=== PATIENT | female | born 1960 | race Caucasian/White ===

== ENCOUNTER 2017-08-31 15:24 | Emergency (ER) | payer OTHER ==
[~2017-08-31] VITALS: Ht 167.6 cm; Wt 87.0 kg
[~2017-08-31 15:24] MED LIST: CYAN10005 PO; CYCL5TAB PO; HYDR-5688 PO; LANS30TA3 PO; POLY335019 PO
[2017-08-31 15:26] VITALS: Ht 167.6 cm; Wt 87.0 kg
[2017-08-31] MEDS ORDERED: OPTIRAY 320 IV PRN (15:45)
[2017-08-31] MEDS ORDERED: HYDR5TAB57 PO (15:46)
[2017-08-31] MEDS ORDERED: MoRPHine SULFATE 10 MG/ML CARP/VIAL IV STA (15:55)
[2017-08-31] MEDS ORDERED: ONDANSETRON INJ 2 MG/ML 2 ML VIAL IV STA (15:55)
[2017-08-31 17:14] LABS: BASO % 0.4 %; BASO ABS # 0.03 K/uL (0-0.2); EOS % 2.3 %; EOS ABS # 0.17 K/uL (0-0.5); HEMATOCRIT 41.8 % (37-47); HEMOGLOBIN 14.1 g/dL (12.0-16.0); IG# 0.02 K/uL (0.00-0.02); LYMPH % 23.3 %; LYMPH ABS # 1.71 K/uL (1.2-3.4); MEAN CELL VOLUME 90.5 fL (80-100); MEAN CORPUSCULAR HEMOGLOBIN 30.5 pg (25-34); MEAN CORPUSCULAR HGB CONC 33.7 g/dl (32-36); MONO % 7.1 %; MONO ABS # 0.52 K/uL (0.11-0.59); NEUT % 66.6 %; NEUT ABS # 4.88 K/uL (1.4-6.5); PLATELET COUNT 239 K/uL (130-400); RED CELL DISTRIBUTION WIDTH SD 45.9 fL (36.4-46.3); WHITE BLOOD COUNT 7.33 K/uL (4.8-10.8)
[2017-08-31 17:20] LABS: CALCIUM 9.1 mg/dl (8.5-10.1); CREATININE 0.91 mg/dl (0.60-1.20); POTASSIUM 3.6 mmol/L (3.5-5.1)
--- NOTE | 2017-08-31 17:31 | DIAGNOSTIC IMAGING REPORT ---
SOFT TISSUE NECK WITH CLINICAL HISTORY: feel like something getting stuck when swallowing dysphagia TECHNIQUE: Transaxial acquisition with multi axial reformatted images COMPARISON STUDY: 08/25/2014 FINDINGS: Major salivary glands are unremarkable. Thyroid gland is symmetric. There is no evidence for airway compromise. The glottic and subglottic regions are unremarkable. The sternocleidomastoid musculature is symmetric. No significant cervical adenopathy. Moderate degenerative change of the cervical spine. This study is unaltered compared to the prior exam. IMPRESSION: 1. No acute process. 2. No evidence for abnormal mass or collection. 3. No evidence for airway compromise. 4. Moderate degenerative change cervical spine unchanged from the prior study. The above report was generated using voice recognition software. It may contain grammatical, syntax or spelling errors. Electronically signed by: Alex Zuniga M.D. 08/31/2017 5:30 PM Dictated Date/Time: 08/31/2017 5:26 PM
--- NOTE | 2017-08-31 17:34 | DIAGNOSTIC IMAGING REPORT ---
FACIAL BONES-MXILLOFAC WITHOUT CT DOSE: 1203.96 mGy.cm HISTORY: Pain severe left TMJ pain TECHNIQUE: Multiaxial CT images of the maxillofacial region were performed and reformatted in the coronal plane without the use of contrast. A dose lowering technique was utilized adhering to the principles of ALARA. COMPARISON: 11/02/2014 FINDINGS: Moderate hypertrophic change of the left and to lesser extent right nasal turbinates. All major sinuses are generally clear. Estimated units are patent bilaterally. Evaluation of the temporomandibular joints shows severe degenerative change of the right temporomandibular joint. There is flattening and erosive change of the right mandibular condyle. Similar but somewhat less prominent findings are seen in the left. There is no evidence for dislocation. There is no significant subluxation in this closed mouth series. All remaining structures are unremarkable. Orbital margins are intact. IMPRESSION: 1. Severe degenerative change right and to lesser extent left temporomandibular joint. 2. No evidence for subluxation or dislocation on this scan series. 3. Moderate hyperplastic change of the nasal turbinates. 4. Mild/moderate degenerative change mid cervical spine. 5. Otherwise negative study. The above report was generated using voice recognition software. It may contain grammatical, syntax or spelling errors. Electronically signed by: Alex Zuniga M.D. 08/31/2017 5:33 PM Dictated Date/Time: 08/31/2017 5:30 PM
--- NOTE | 2017-08-31 18:11 | EMERGENCY ROOM VISIT NOTE ---
History Report prepared by Keliibolimpia: Beatriz Antoine Under the Supervision of: Dr. Yuniel Tellez D.O. First contact with patient: 15:30 Chief Complaint: FACIAL PAIN/INJURY Stated Complaint: TMJ,NOSE BLEEDING History of Present Illness The patient is a 57 year old female who presents to the Emergency Room with complaints of persistent facial pain for the past day. Last night, she felt something "crack" in her nose and jaw, and started experiencing epistaxis. She rates her facial pain as a 6/10 in severity. She has also experienced difficulty swallowing and admits to a history of eustachian tube dysfunction. She denies any recent cough, rhinorrhea or sore throat. The patient reports she underwent TMJ surgery by Dr. Natanael Penny approximately 1 year ago at [facility]. She is scheduled to see him again for a follow up on September. She called her PCP last night, and they referred her here to the ED for her symptoms. Pt denies headache, change in vision, fevers, chest pain, shortness of breath, nausea, vomiting, diarrhea, pain with urination, and melena. Source of History: patient Onset: last night Position: head (face) Symptom Intensity: 6/10 Timing: other (persistent) Associated Symptoms: No headache, No sorethroat, No cough, No chest pain, No SOB, No nausea, No vomiting, No melena, No diarrhea, No urinary symptoms Review of Systems See HPI for pertinent positives & negatives. A total of 10 systems reviewed and were otherwise negative. Past Medical & Surgical Medical Problems: (1) C. difficile colitis (2) Esophageal stricture (3) Eustachian tube dysfunction (4) Hiatal hernia (5) Lyme disease Surgical Problems: (1) History of bowel resection (2) Hx of cholecystectomy Family History Cancer Diabetes mellitus Gallbladder disease Seizures Social History Smoking Status: Never Smoker Alcohol Use: occasionally Drug Use: none Marital Status: Housing Status: lives with significant other Occupation Status: unemployed Current/Historical Medications Scheduled Cyanocobalamin (Vitamin B-12), 1,000 MCG PO DAILY Scheduled PRN Cyclobenzaprine Hcl (Flexeril), 5 MG PO TID PRN for MUSCLE SPASMS Hydrocodone/Acetaminophen 5MG/325MG ([place] 5MG/325MG), 1 TAB PO TID PRN for Pain Hydrocortisone (Cortef), 5 MG PO Q3D PRN for stress Lansoprazole (Prevacid Solutab), 30 MG PO DAILY PRN for Dyspepsia Polyethylene Glycol 3350 (Miralax), 17 GM PO DAILY PRN for Constipation Allergies Coded Allergies: Hydromorphone (Verified Allergy, Unknown, N/V/RASH, 08/31/17) Propoxyphene (Verified Allergy, Unknown, N/V/RASH, 08/31/17) Sulfa Drugs (Verified Allergy, Unknown, SOME SULFA UNABLE TO TAKE, ) Physical Exam Vital Signs Date Time Temp Pulse Resp B/P (MAP) Pulse Ox O2 Delivery O2 Flow Rate FiO2 08/31/17 18:28 36.5 85 16 133/82 99 08/31/17 17:23 89 12 147/88 97 Room Air 08/31/17 15:26 36.5 97 17 159/85 96 Room Air Physical Exam GENERAL: Sitting up in bed, alert, well appearing, well nourished, talking in full sentences, no distress, non-toxic EYE EXAM: normal conjunctiva. FACE: Audible clicking with opening of jaw greater than 40 degrees over left TMJ , patient is acutely tender to palpation on bilateral TMJ OROPHARYNX: no exudate, no erythema, lips, buccal mucosa, and tongue normal and mucous membranes are moist EARS: TM's clear bilaterally NECK: supple, no nuchal rigidity, no adenopathy, non-tender LUNGS: Clear to auscultation. Normal chest wall mechanics HEART: no murmurs, S1 normal and S2 normal ABDOMEN: abdomen soft, non-tender, normo-active bowel sounds, no masses, no rebound or guarding. SKIN: no rashes and no bruising UPPER EXTREMITIES: upper extremities are grossly normal. LOWER EXTREMITIES: No pitting edema. NEURO EXAM: Normal sensorium, cranial nerves II-XII grossly intact, normal speech, no gross weakness of arms, no gross weakness of legs. Gross sensation intact. Medical Decision & Procedures ER Provider Diagnostic Interpretation: Radiology results as stated below per my review and the radiologist's interpretation: FACIAL BONES-MXILLOFAC WITHOUT CT DOSE: 1203.96 mGy.cm HISTORY: Pain severe left TMJ pain TECHNIQUE: Multiaxial CT images of the maxillofacial region were performed and reformatted in the coronal plane without the use of contrast. A dose lowering technique was utilized adhering to the principles of ALARA. COMPARISON: 11/02/2014 FINDINGS: Moderate hypertrophic change of the left and to lesser extent right nasal turbinates. All major sinuses are generally clear. Estimated units are patent bilaterally. Evaluation of the temporomandibular joints shows severe degenerative change of the right temporomandibular joint. There is flattening and erosive change of the right mandibular condyle. Similar but somewhat less prominent findings are seen in the left. There is no evidence for dislocation. There is no significant subluxation in this closed mouth series. All remaining structures are unremarkable. Orbital margins are intact. IMPRESSION: 1. Severe degenerative change right and to lesser extent left temporomandibular joint. 2. No evidence for subluxation or dislocation on this scan series. 3. Moderate hyperplastic change of the nasal turbinates. 4. Mild/moderate degenerative change mid cervical spine. 5. Otherwise negative study. The above report was generated using voice recognition software. It may contain grammatical, syntax or spelling errors. Electronically signed by: Alex Zuniga M.D. 08/31/2017 5:33 PM SOFT TISSUE NECK WITH CLINICAL HISTORY: feel like something getting stuck when swallowing dysphagia TECHNIQUE: Transaxial acquisition with multi axial reformatted images COMPARISON STUDY: 08/25/2014 FINDINGS: Major salivary glands are unremarkable. Thyroid gland is symmetric. There is no evidence for airway compromise. The glottic and subglottic regions are unremarkable. The sternocleidomastoid musculature is symmetric. No significant cervical adenopathy. Moderate degenerative change of the cervical spine. This study is unaltered compared to the prior exam. IMPRESSION: 1. No acute process. 2. No evidence for abnormal mass or collection. 3. No evidence for airway compromise. 4. Moderate degenerative change cervical spine unchanged from the prior study. The above report was generated using voice recognition software. It may contain grammatical, syntax or spelling errors. Electronically signed by: Alex Zuniga M.D. 08/31/2017 5:30 PM Laboratory Results 08/31/17 16:15 Red Blood Count 4.62, Mean Corpuscular Volume 90.5, Mean Corpuscular Hemoglobin 30.5, Mean Corpuscular Hemoglobin Concent 33.7, Mean Platelet Volume 10.0, Neutrophils (%) (Auto) 66.6, Lymphocytes (%) (Auto) 23.3, Monocytes (%) (Auto) 7.1, Eosinophils (%) (Auto) 2.3, Basophils (%) (Auto) 0.4, Neutrophils # (Auto) 4.88, Lymphocytes # (Auto) 1.71, Monocytes # (Auto) 0.52, Eosinophils # (Auto) 0.17, Basophils # (Auto) 0.03 08/31/17 16:15 Test 08/31/17 16:15 White Blood Count 7.33 K/uL (4.8-10.8) Red Blood Count 4.62 M/uL (4.2-5.4) Hemoglobin 14.1 g/dL (12.0-16.0) Hematocrit 41.8 % (37-47) Mean Corpuscular Volume 90.5 fL (80-100) Mean Corpuscular Hemoglobin 30.5 pg (25-34) Mean Corpuscular Hemoglobin Concent 33.7 g/dl (32-36) Platelet Count 239 K/uL (130-400) Mean Platelet Volume 10.0 fL (7.4-10.4) Neutrophils (%) (Auto) 66.6 % Lymphocytes (%) (Auto) 23.3 % Monocytes (%) (Auto) 7.1 % Eosinophils (%) (Auto) 2.3 % Basophils (%) (Auto) 0.4 % Neutrophils # (Auto) 4.88 K/uL (1.4-6.5) Lymphocytes # (Auto) 1.71 K/uL (1.2-3.4) Monocytes # (Auto) 0.52 K/uL (0.11-0.59) Eosinophils # (Auto) 0.17 K/uL (0-0.5) Basophils # (Auto) 0.03 K/uL (0-0.2) RDW Standard Deviation 45.9 fL (36.4-46.3) RDW Coefficient of Variation 14.0 % (11.5-14.5) Immature Granulocyte % (Auto) 0.3 % Immature Granulocyte # (Auto) 0.02 K/uL (0.00-0.02) Anion Gap 2.0 mmol/L (3-11) Est Creatinine Clear Calc Drug Dose 76.7 ml/min Estimated GFR () 81.7 Estimated GFR (Non- 70.5 BUN/Creatinine Ratio 12.1 (10-20) Calcium Level 9.1 mg/dl (8.5-10.1) Laboratory results per my review. Medications Administered Medications (Trade) Dose Ordered Sig/Elie Route Start Time Stop Time Status Last Admin Dose Admin Morphine Sulfate (MoRPHine SULFATE INJ) 6 mg NOW STAT IV 08/31/17 15:55 08/31/17 15:56 DC 08/31/17 16:18 6 MG Ondansetron HCl (Zofran Inj) 4 mg NOW STAT IV 08/31/17 15:55 08/31/17 15:56 DC 08/31/17 16:18 4 MG ED Course ED COURSE: Vital signs were reviewed and showed the patient is hypertensive. The patients medical record was reviewed The above diagnostic studies were performed and reviewed. ED treatments and interventions as stated above. 1533: The patient was evaluated in room B10. A complete history and physical examination was performed. 1555: Zofran 4 mg IV, Morphine Sulfate 6 mg IV. 1805: Upon reevaluation, the patient is feeling well and resting comfortably. I discussed my findings with the patient and she understands and agrees with the treatment plan. Based on the patients age, coexisting illnesses, exam and lab findings the decision to treat as an outpatient was made. The patient remained stable while under my care. The patient appeared well at the time of discharge. Medical Decision Differential diagnosis includes etiologies such as viral syndrome, tonsillitis, streptococcal pharyngitis, mononucleosis, peritonsillar abscess, retropharyngeal abscess, otitis, pneumonia, influenza, as well as others were entertained. Patient is a 57-year-old female who presents to ER for severe pain in her left TMJ, left ear and pain with swallowing. She is able swallow but notes it hurts. CBC and BMP were unremarkable. CT of the neck and facial bones was unremarkable. 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 Patient was updated regards to these. She was given IV movement pain medications. She has significant improvement in her symptoms. She was discharged follow-up with PCP as an outpatient. Discussed with Pt concerning signs and symptoms to watch out for. Pt was instructed to follow up with their PCP and discussed with the patient their option to return to the ED at anytime for persistent or worsening symptoms. The appropriate anticipatory guidance and out-patient management, including indications for return to the emergency department, were explained at length to the patient and understood. Medication Reconcilliation Current Medication List: was personally reviewed by me Blood Pressure Screening Patient's blood pressure: Elevated blood pressure Blood pressure disposition: Referred to PCP Impression Primary Impression: TMJ (temporomandibular joint syndrome) Scribe Attestation The scribe's documentation has been prepared under my direction and personally reviewed by me in its entirety. I confirm that the note above accurately reflects all work, treatment, procedures, and medical decision making performed by me. Departure Information Dispostion Home / Self-Care Referrals Kiara Ryan DO (PCP) Patient Instructions ED TMJ Syndrome, [facility], [facility] Pain Relief Methods, [facility] Self Care Additional Instructions Please follow up with your primary care doctor with in the next 24 hours. Any worsening of your symptoms, please return to the ED immediately. This includes any fevers greater than 100.4, worsening pain, chest pain, shortness breath, persistent nausea, vomiting, unable to eat or drink, or any other concerning signs or symptoms from your standpoint. Please take Tylenol or Motrin as needed for pain. Please follow-up with your surgeon as soon as possible.
[2017-08-31 18:28] VITALS: BP 133/82; PULSE 85; TEMP 36.5; O2SAT 99
== END 2017-08-31 18:20 | disposition home or self-care (01) ==
LOC: C.EDB 15:26
DX: M26.622 Arthralgia of left temporomandibular joint (principal); Z90.49 Acquired absence of other specified parts of digestive tract; Z83.3 Family history of diabetes mellitus; Z82.0 Family history of epilepsy and other diseases of the nervous system

== ENCOUNTER 2017-12-22 20:50 | Emergency (ER) | payer OTHER ==
[~2017-12-22] VITALS: Ht 165.1 cm; Wt 105.6 kg
[~2017-12-22 20:50] MED LIST changes: +HYDR5TAB57 PO
[2017-12-22 20:52] VITALS: TEMP 36.5
[2017-12-22 21:10] VITALS: Ht 165.1 cm; Wt 105.6 kg
[2017-12-22] MEDS ORDERED: ONDANSETRON INJ 2 MG/ML 2 ML VIAL IV STA (21:36)
--- NOTE | 2017-12-22 21:37 | EMERGENCY ROOM VISIT NOTE ---
History Report prepared by Eliazar: Rabia Brock Under the Supervision of: Martin ReevesO. First contact with patient: 21:16 Chief Complaint: FACIAL PAIN/INJURY Stated Complaint: TMJ SURGERY JANUARY 13 History of Present Illness The patient is a 57 year old female who presents to the Emergency Room with complaints of persistent persistent jaw pain that began earlier today. She reports that she is due for TMJ surgery on January 13, noting that she will be getting a complete jaw replacement. The patient states that this morning while she was brushing her teeth, she felt her jaw pop and since she has been feeling like there is cartilage hanging in her throat. She notes that she feels like she is going to choke on the cartilage. The last time she had any kind of jaw surgery was about 6 years ago. Source of History: patient Onset: today Position: jaw Quality: other (jaw pain) Timing: other (persistent) Note: Associated symptoms include: feeling like there is cartilage hanging in her throat. Review of Systems See HPI for pertinent positives & negatives. A total of 10 systems reviewed and were otherwise negative. Past Medical & Surgical Medical Problems: (1) C. difficile colitis (2) Diabetes (3) Esophageal stricture (4) Eustachian tube dysfunction (5) Hiatal hernia (6) Hypertension (7) Lyme disease (8) Ulcer Surgical Problems: (1) History of bowel resection (2) Hx of cholecystectomy Family History Cancer Diabetes mellitus Gallbladder disease Seizures Social History Smoking Status: Never Smoker Alcohol Use: occasionally Drug Use: none Marital Status: Housing Status: lives with significant other Occupation Status: unemployed Current/Historical Medications Scheduled Cyanocobalamin (Vitamin B-12), 1,000 MCG PO DAILY Scheduled PRN Cyclobenzaprine Hcl (Flexeril), 5 MG PO TID PRN for MUSCLE SPASMS Hydrocodone/Acetaminophen 5MG/325MG ([place] 5MG/325MG), 1 TAB PO TID PRN for Pain Hydrocortisone (Cortef), 5 MG PO Q3D PRN for stress Lansoprazole (Prevacid Solutab), 30 MG PO DAILY PRN for Dyspepsia Polyethylene Glycol 3350 (Miralax), 17 GM PO DAILY PRN for Constipation Allergies Coded Allergies: Hydromorphone (Verified Allergy, Unknown, N/V/RASH, 12/22/17) Propoxyphene (Verified Allergy, Unknown, N/V/RASH, 12/22/17) Sulfa Drugs (Verified Allergy, Unknown, SOME SULFA UNABLE TO TAKE, 12/22/17 ) Physical Exam Vital Signs Date Time Temp Pulse Resp B/P (MAP) Pulse Ox O2 Delivery O2 Flow Rate FiO2 12/23/17 00:03 79 20 136/87 95 12/22/17 23:25 82 16 136/84 95 Room Air 12/22/17 22:27 92 18 171/96 95 Room Air 12/22/17 20:52 36.5 87 16 159/102 93 Room Air Physical Exam GENERAL: Patient is awake, alert, and in no acute distress. Patient is resting comfortably and showing no signs of anxiety EYES: The conjunctivae are clear. The pupils are round and reactive. EARS, NOSE, MOUTH AND THROAT: Tenderness over the left mandible. Mild trismus. No gum line swelling. Posterior oropharynx is clear. The nose is without any evidence of any deformity. Mucous membranes are moist tongue is midline NECK: The neck is nontender and supple. RESPIRATORY: Normal respiratory effort is noted there is no evidence of wheezing rhonchi or rales CARDIOVASCULAR: Regular rate and rhythm noted there no murmurs rubs or gallops normal S1 normal S2 GASTROINTESTINAL: The abdomen is soft. Bowel sounds are present in all quadrants. Abdomen is nontender MUSCULOSKELETAL/EXTREMITIES: There is no evidence of gross deformity full range of motion is noted in the hips and shoulders SKIN: There is no obvious evidence of any rash. There are no petechiae, pallor or cyanosis noted. NEUROLOGIC: Patient is awake alert and oriented x3 Medical Decision & Procedures ER Provider Diagnostic Interpretation: Radiology results as stated below per my review and radiologist interpretation: MAXILLOFACIAL CT CT DOSE: 602.54 mGy.cm HISTORY: Recent TMJ surgery. Pain. TECHNIQUE: Multiaxial CT images of the maxillofacial region were performed and reformatted in the coronal plane without the use of contrast. A dose lowering technique was utilized adhering to the principles of ALARA. COMPARISON: Maxillofacial CT 08/31/2017. FINDINGS: The visualized brain parenchyma and orbits are unremarkable. No significant soft tissue swelling. Degenerative changes are again noted throughout the cervical spine. An 8 mm anterior nasal septal defect is again noted. No fluid levels within the paranasal sinuses. The mastoid air cells are clear. Advanced degenerative changes and chronic deformity within the bilateral temporomandibular joints remains unchanged. Erosive changes within the right mandibular condyle remains stable. This may be due to the long-standing degenerative change. No change in the subtle lucency at the left apex of the mandible on image 113. Therefore, this is unlikely to represent an acute fracture. No definite acute fractures within the facial bones. No dislocation within the mandible. Left mandibular periapical lucencies persist. IMPRESSION: 1. Overall, no significant change compared to the prior study. 2. Advanced degenerative changes within the temporomandibular joints. 3. No acute fractures identified within the facial bones. Electronically signed by: Feliciano Asif M.D. 12/22/2017 11:23 PM Dictated Date/Time: 12/22/2017 11:14 PM Laboratory Results 12/22/17 22:15 Red Blood Count 4.68, Mean Corpuscular Volume 89.1, Mean Corpuscular Hemoglobin 29.7, Mean Corpuscular Hemoglobin Concent 33.3, Mean Platelet Volume 10.2, Neutrophils (%) (Auto) 64.5, Lymphocytes (%) (Auto) 22.3, Monocytes (%) (Auto) 8.8, Eosinophils (%) (Auto) 3.6, Basophils (%) (Auto) 0.4, Neutrophils # (Auto) 4.90, Lymphocytes # (Auto) 1.69, Monocytes # (Auto) 0.67, Eosinophils # (Auto) 0.27, Basophils # (Auto) 0.03 12/22/17 22:15 Test 12/22/17 22:00 12/22/17 22:15 Urine Color YELLOW Urine Appearance CLOUDY (CLEAR) Urine pH 6.0 (4.5-7.5) Urine Specific [place] 1.014 (1.000-1.030) Urine Protein NEG (NEG) Urine Glucose (UA) NEG (NEG) Urine Ketones 1+ (NEG) Urine Occult Blood 1+ (NEG) Urine Nitrite NEG (NEG) Urine Bilirubin NEG (NEG) Urine Urobilinogen NEG (NEG) Urine Leukocyte Esterase MODERATE (NEG) Urine WBC (Auto) 10-30 /hpf (0-5) Urine RBC (Auto) 5-10 /hpf (0-4) Urine Hyaline Casts (Auto) 1-5 /lpf (0-5) Urine Epithelial Cells (Auto) >30 /lpf (0-5) Urine Bacteria (Auto) NEG (NEG) White Blood Count 7.59 K/uL (4.8-10.8) Red Blood Count 4.68 M/uL (4.2-5.4) Hemoglobin 13.9 g/dL (12.0-16.0) Hematocrit 41.7 % (37-47) Mean Corpuscular Volume 89.1 fL (80-100) Mean Corpuscular Hemoglobin 29.7 pg (25-34) Mean Corpuscular Hemoglobin Concent 33.3 g/dl (32-36) Platelet Count 253 K/uL (130-400) Mean Platelet Volume 10.2 fL (7.4-10.4) Neutrophils (%) (Auto) 64.5 % Lymphocytes (%) (Auto) 22.3 % Monocytes (%) (Auto) 8.8 % Eosinophils (%) (Auto) 3.6 % Basophils (%) (Auto) 0.4 % Neutrophils # (Auto) 4.90 K/uL (1.4-6.5) Lymphocytes # (Auto) 1.69 K/uL (1.2-3.4) Monocytes # (Auto) 0.67 K/uL (0.11-0.59) Eosinophils # (Auto) 0.27 K/uL (0-0.5) Basophils # (Auto) 0.03 K/uL (0-0.2) RDW Standard Deviation 45.7 fL (36.4-46.3) RDW Coefficient of Variation 14.1 % (11.5-14.5) Immature Granulocyte % (Auto) 0.4 % Immature Granulocyte # (Auto) 0.03 K/uL (0.00-0.02) Erythrocyte Sedimentation Rate 23 mm/hr (0-21) Prothrombin Time 10.5 SECONDS (9.0-12.0) Prothromb Time International Ratio 1.0 (0.9-1.1) Activated Partial Thromboplast Time 25.0 SECONDS (21.0-31.0) Partial Thromboplastin Ratio 1.0 Anion Gap 4.0 mmol/L (3-11) Est Creatinine Clear Calc Drug Dose 90.2 ml/min Estimated GFR () 90.0 Estimated GFR (Non- 77.7 BUN/Creatinine Ratio 10.7 (10-20) Calcium Level 8.8 mg/dl (8.5-10.1) Magnesium Level 1.9 mg/dl (1.8-2.4) Total Bilirubin 0.8 mg/dl (0.2-1) Direct Bilirubin 0.2 mg/dl (0-0.2) Aspartate Amino Transf (AST/SGOT) 69 U/L (15-37) Alanine Aminotransferase (ALT/SGPT) 80 U/L (12-78) Alkaline Phosphatase 71 U/L (45-117) Troponin I < 0.015 ng/ml (0-0.045) C-Reactive Protein 2.94 mg/dl (0-0.29) Total Protein 7.6 gm/dl (6.4-8.2) Albumin 4.0 gm/dl (3.4-5.0) Thyroid Stimulating Hormone (TSH) 0.801 uIu/ml (0.300-4.500) Laboratory results per my review. Medications Administered Medications (Trade) Dose Ordered Sig/Elie Route Start Time Stop Time Status Last Admin Dose Admin Ondansetron HCl (Zofran Inj) 4 mg NOW STAT IV 12/22/17 21:36 12/22/17 21:38 DC 12/22/17 22:25 4 MG Morphine Sulfate (MoRPHine SULFATE INJ) 4 mg Q15M PRN IV 12/22/17 21:45 12/23/17 00:19 DC 12/22/17 23:28 2 MG Acetaminophen/ Hydrocodone Bitart ([place] 5/325mg Home Pack) 1 homepack UD ONCE PO 12/23/17 00:00 12/23/17 00:01 DC 12/23/17 00:02 1 HOMEPACK ECG Per My Interpretation Indication: other (neck pain) Rate (beats per minute): 77 Rhythm: normal sinus Findings: no ectopy, other (No acute ST segments) Change: no significant change (02/13/16) ED Course 2124: The patient was evaluated in room A4. A complete history and physical examination were performed. 2135: Ordered Zofran Inj 4mg IV. 5: Ordered Morphine Sulfate 4mg IV. 2345: Ordered Oxycodone HCl 1 homepack PO. 0000: Ordered Hydrocodone Bitart/ Acetaminophen 1 homepack PO. 0036: Upon reevaluation, the patient is feeling significantly better. I discussed the results and treatment plan with her. She verbalized agreement of the treatment plan. The patient was discharged home. Medical Decision Prior records/ancillary studies reviewed. Triage Nursing notes reviewed. The patient's history was concerning for headache. Differential diagnosis: Etiologies such as migraine headache, meningitis, sinusitis, CO exposure, ICH, SAH, infection, tumor, headache, sinus thrombosis, arterial dissection, as well as others were entertained. The patient is a 57-year-old female who has a history of TMJ disorder who presented to the emergency department for an evaluation of left jaw pain. The patient is scheduled to see her primary TMJ specialist as well as her primary care physician. She was encouraged to continue all medications as prescribed. She was treated with pain medication and antiemetics in the emergency department. I discussed patient's laboratory and radiographic studies with her. No definite signs of infection were noted and the radiographic studies did not show any significant change. She was encouraged to follow-up with her doctors as soon as possible but return to the emergency department immediately if symptoms change worsen or the need arises. Medication Reconcilliation Current Medication List: was personally reviewed by me Blood Pressure Screening Patient's blood pressure: Normal blood pressure Blood pressure disposition: Did not require urgent referral Impression Primary Impression: Headache Additional Impression: TMJ (temporomandibular joint syndrome) Scribe Attestation The scribe's documentation has been prepared under my direction and personally reviewed by me in its entirety. I confirm that the note above accurately reflects all work, treatment, procedures, and medical decision making performed by me. Departure Information Dispostion Home / Self-Care Referrals Kiara Ryan DO (PCP) Forms HOME CARE DOCUMENTATION FORM, IMPORTANT VISIT INFORMATION Patient Instructions My [facility] Additional Instructions Call your primary surgeon as well as your primary care physician in the morning to schedule a follow-up appointment. Medications as prescribed. Problem Qualifiers Primary Impression: Headache Headache type: unspecified Headache chronicity pattern: unspecified pattern Intractability: not intractable Qualified Codes: R51 - Headache
[2017-12-22] MEDS: MoRPHine SULFATE 4 MG/ML 1 ML CARP\\VIAL IV PRN ×2 (22:25→23:28)
[2017-12-22 22:53] LABS: BASO % 0.4 %; BASO ABS # 0.03 K/uL (0-0.2); EOS % 3.6 %; EOS ABS # 0.27 K/uL (0-0.5); HEMATOCRIT 41.7 % (37-47); HEMOGLOBIN 13.9 g/dL (12.0-16.0); IG# 0.03 K/uL (0.00-0.02); LYMPH % 22.3 %; LYMPH ABS # 1.69 K/uL (1.2-3.4); MEAN CELL VOLUME 89.1 fL (80-100); MEAN CORPUSCULAR HEMOGLOBIN 29.7 pg (25-34); MEAN CORPUSCULAR HGB CONC 33.3 g/dl (32-36); MEAN PLATELET VOLUME 10.2 fL (7.4-10.4); MONO % 8.8 %; MONO ABS # 0.67 K/uL (0.11-0.59); NEUT % 64.5 %; PLATELET COUNT 253 K/uL (130-400); RED CELL DISTRIBUTION WIDTH CV 14.1 % (11.5-14.5); RED CELL DISTRIBUTION WIDTH SD 45.7 fL (36.4-46.3); WHITE BLOOD COUNT 7.59 K/uL (4.8-10.8)
[2017-12-22 23:01] LABS: BLOOD UREA NITROGEN 9 mg/dl (7-18); CREATININE 0.84 mg/dl (0.60-1.20); GLUCOSE 83 mg/dl (70-99)
[2017-12-22 23:02] LABS: ALT/SGPT 80 U/L (12-78); AST/SGOT 69 U/L (15-37); CALCIUM 8.8 mg/dl (8.5-10.1); CARBON DIOXIDE 31 mmol/L (21-32); POTASSIUM 3.3 mmol/L (3.5-5.1); SODIUM 139 mmol/L (136-145)
[2017-12-22 23:11] LABS: ALKALINE PHOSPHATASE 71 U/L (45-117); TOTAL PROTEIN 7.6 gm/dl (6.4-8.2)
--- NOTE | 2017-12-22 23:24 | DIAGNOSTIC IMAGING REPORT ---
MAXILLOFACIAL CT CT DOSE: 602.54 mGy.cm HISTORY: Recent TMJ surgery. Pain. TECHNIQUE: Multiaxial CT images of the maxillofacial region were performed and reformatted in the coronal plane without the use of contrast. A dose lowering technique was utilized adhering to the principles of ALARA. COMPARISON: Maxillofacial CT 08/31/2017. FINDINGS: The visualized brain parenchyma and orbits are unremarkable. No significant soft tissue swelling. Degenerative changes are again noted throughout the cervical spine. An 8 mm anterior nasal septal defect is again noted. No fluid levels within the paranasal sinuses. The mastoid air cells are clear. Advanced degenerative changes and chronic deformity within the bilateral temporomandibular joints remains unchanged. Erosive changes within the right mandibular condyle remains stable. This may be due to the long-standing degenerative change. No change in the subtle lucency at the left apex of the mandible on image 113. Therefore, this is unlikely to represent an acute fracture. No definite acute fractures within the facial bones. No dislocation within the mandible. Left mandibular periapical lucencies persist. IMPRESSION: 1. Overall, no significant change compared to the prior study. 2. Advanced degenerative changes within the temporomandibular joints. 3. No acute fractures identified within the facial bones. Electronically signed by: Feliciano Asif M.D. 12/22/2017 11:23 PM Dictated Date/Time: 12/22/2017 11:14 PM
[2017-12-22] MEDS ORDERED: OXYCODONE IR HOME PACK PO ONE (23:45)
[2017-12-23] MEDS ORDERED: NORCO 5/325MG HOME PACK PO ONE
[2017-12-23 00:03] VITALS: BP 136/87; PULSE 79; O2SAT 95
== END 2017-12-23 00:05 | disposition home or self-care (01) ==
LOC: C.EDB 20:51 → C.EDA 12-23 00:05
DX: R51 Headache (principal); M26.629 Arthralgia of temporomandibular joint, unspecified side; E11.9 Type 2 diabetes mellitus without complications; I10 Essential (primary) hypertension; Z90.49 Acquired absence of other specified parts of digestive tract; Z98.890 Other specified postprocedural states; Z83.3 Family history of diabetes mellitus; Z82.0 Family history of epilepsy and other diseases of the nervous system; Z88.2 Allergy status to sulfonamides; Z88.5 Allergy status to narcotic agent; Z88.8 Allergy status to other drugs, medicaments and biological substances

== ENCOUNTER → 2018-04-01 | Outpatient (CLI) | payer OTHER ==
[2018-04-01 12:48] LABS: BASO % 0.3 %; BASO ABS # 0.02 K/uL (0-0.2); EOS % 3.5 %; EOS ABS # 0.23 K/uL (0-0.5); HEMATOCRIT 41.2 % (37-47); HEMOGLOBIN 13.9 g/dL (12.0-16.0); LYMPH % 27.8 %; LYMPH ABS # 1.81 K/uL (1.2-3.4); MEAN CELL VOLUME 91.2 fL (80-100); MEAN CORPUSCULAR HEMOGLOBIN 30.8 pg (25-34); MEAN CORPUSCULAR HGB CONC 33.7 g/dl (32-36); MEAN PLATELET VOLUME 10.7 fL (7.4-10.4); MONO % 7.1 %; MONO ABS # 0.46 K/uL (0.11-0.59); NEUT % 61.3 %; NEUT ABS # 3.98 K/uL (1.4-6.5); PLATELET COUNT 268 K/uL (130-400); RED CELL DISTRIBUTION WIDTH CV 14.3 % (11.5-14.5); RED CELL DISTRIBUTION WIDTH SD 47.8 fL (36.4-46.3)
[2018-04-01 13:46] LABS: ALBUMIN 3.6 gm/dl (3.4-5.0); ALKALINE PHOSPHATASE 64 U/L (45-117); ALT/SGPT 38 U/L (12-78); AST/SGOT 23 U/L (15-37); BLOOD UREA NITROGEN 14 mg/dl (7-18); CALCIUM 8.6 mg/dl (8.5-10.1); CARBON DIOXIDE 28 mmol/L (21-32); CHOLESTEROL 183 mg/dl (0-200); CREATININE 0.98 mg/dl (0.60-1.20); GLUCOSE 90 mg/dl (70-99); LDL CHOLESTEROL CALCULATED 116 mg/dl; POTASSIUM 4.2 mmol/L (3.5-5.1); SODIUM 139 mmol/L (136-145)
== END | disposition home or self-care (01) ==
LOC: C.LABPBG 08:10
PROVIDERS: ATTEND Family Medicine
DX: E11.9 Type 2 diabetes mellitus without complications (principal); R63.5 Abnormal weight gain; M26.609 Unspecified temporomandibular joint disorder, unspecified side; I10 Essential (primary) hypertension

== ENCOUNTER 2019-02-01 05:46 | Inpatient (IN) ==
--- NOTE | 2019-01-20 12:32 | Anesthesiology Consultation ---
Date of Service January 20, 2019 Assessment & Plan (1) Encounter for pre-operative examination: - PCP: 01/27/19: hx psychosis; long h/o mental health disease "currently untreated." Does not routinely follow with psychiatrist. 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 She then should be tapered from 20 in AM and 10 in PM a day until off steroids to aid in her recovery." Surgeon made aware. - S/P EGD: 07/19/14 (for food bolus): Grade view 1, MAC#3, ETT 7.0 at [facility] without issue Chart Review Chart Review: Acceptable Risk for Surgery (pending evaluation AM DOS) and Patient seen in Pre Admission Testing Teaching & Discussion Pre-Anesthesia Teaching/Discussion Notes: Instructed NPO after midnight before surgery,except medications with 15 cc of water. Medication instructions provided according to the PAT guidelines. History Surgery Operation Date: 02/01/19 07:45 Proposed Procedures p C5-C6, C6-C7 Anterior Cervical Discectomy and Fusion, Spinal Cord Monitoring - Idris Urrutia DO Height/Weight Height: 5 ft 4 in Weight: 97.5 kg Allergies Allergy/AdvReac Type Severity Reaction Status Date / Time hydromorphone Allergy Unknown N/V/RASH Verified 01/13/19 11:50 propoxyphene Allergy Unknown N/V/RASH Verified 01/13/19 11:50 Sulfa (Sulfonamide Allergy Unknown UNKNOWN Verified 01/20/19 12:29 Antibiotics) REACTION Medications Home Medications Medication Instructions Recorded Confirmed Last Taken hydrocodone-acetaminophen 1 tab PO Q6H PRN 01/13/19 01/13/19 Unknown lansoprazole 30 mg PO QPM 01/13/19 01/13/19 Unknown vitamin E 500 unit PO QAM 01/13/19 01/13/19 Unknown Past Medical History Medical History GERD (gastroesophageal reflux disease) OCCASIONAL History of [place] disease SECONDARY S/P PARTIAL ADRENALECTOMY (2009) Hx of Lyme disease S/P TREATMENT 2016 IBS (irritable bowel syndrome) PTSD (post-traumatic stress disorder) Psychosis PER PCP RECORDS Exercise / Class Metabolic Activity III < 4 Walking/Shop/Light housework Past Family History Family History Mother Family history of diabetes mellitus Past Surgical History Surgical History History of bowel resection 2/2 "KINK" IN BOWEL History of cholecystectomy History of colonoscopy History of ear surgery EUSTACHIAN TUBE History of esophagogastroduodenoscopy (EGD) 07/19/14 (for food bolus): Grade view 1, MAC#3, ETT 7.0 at [facility] History of nasal septoplasty History of neck surgery PER PATIENT, REMOVAL OF ADHESIONS Hx of abdominal surgery 2/2 ADHESIONS Hx of hernia repair X2 Hx of hysterectomy Hx of meniscectomy of right knee Hx of partial adrenalectomy 2009 Past Anesthesia History No Hx of Anesthesia Complications and No Family Hx of Anesthesia Complications History of PONV No Hx of PONV and No Hx of Motion Sickness STOP BANG Total 1 Social History Smoking Status: Never smoker Do You Dip or Chew Tobacco: No Hx Alcohol Use: Yes Alcohol type: wine alcohol intake frequency: holidays/special occasions only Hx Substance Use: No Review of Systems Patient denies chest pain, shortness of breath, cough, wheezing, palpitations. Physical Exam Vital Signs VITALS BP 129/83 P 89 TEMP 98.1 SP02 93%RA RESP 18 PHYSICAL Full neck and c-spine range of motion. Full TMJ range of motion. TMD 3 finger breaths Mallampati Score 2 (small oral opening) Dentition: intact Lungs: clear throughout to auscultation Cardiac: regular rate and rhythm, no murmurs noted Spine: normal Carotid arteries: negative bruit Extremities: no edema Patient appears to be talking to herself during evaluation; denies auditory/visual hallucinations. Noted to have UE ticks. Psychosis hx per PCP records; following with psych. Contacted PCP office 01/20/19; Ondina (nurse) states this is chronic issue/at patient's baseline. She states she will relay information to PCP to make them aware and will be seeing patient prior to surgery. Testing Laboratory Results 01/04/19 WBC 10.0 H/H 13.4/39.4 PLATELETS 289 SODIUM 138 POTASSIUM 4.0 CHLORIDE 103 CO2 28 BUN 14 CREATININE 0.80 GLUCOSE 95 01/20/19 01/20/19 01/20/19 12:14 12:14 12:14 PT 10.4 INR 1.0 APTT 25.6 Urine Color Yellow Urine Appearance Cloudy A Urine pH 7.5 Ur Specific [place] 1.013 Urine Protein Negative Urine Glucose (UA) Negative Urine Ketones Negative Urine Nitrite Negative Ur Leukocyte Esterase 1+ H Urine WBC (Auto) 10-30 H Urine RBC (Auto) 0-4 U Hyaline Cast (Auto) 1-5 U Epithel Cells (Auto) >30 H Urine Bacteria (Auto) Negative Blood Type A Positive Antibody Screen NEGATIVE Electrocardiogram Date: 06/12/18 SR at 94bpm. Chest X-Ray Date: 01/20/19 Findings: + NAD Echocardiogram Date: 04/01/14 EF 60-65%. Mild MR/AL. Grade I DD.
--- NOTE | 2019-01-20 12:35 | PAT Medication Instructions ---
Medication Instructions Date of Service January 20, 2019 Home Medications hydrocodone-acetaminophen 1 tab PO Q6H PRN lansoprazole 30 mg PO QPM vitamin E 500 unit PO QAM STOP taking 2 weeks before surgery (or as soon as possible if surgery is within 2 weeks) vitamin E 500 unit PO QAM Take morning of surgery With a small sip of water, OTHERWISE NOTHING TO EAT OR DRINK AFTER MIDNIGHT: hydrocodone-acetaminophen 1 tab PO Q6H PRN (okay to take up to 4 hours prior to surgery if needed) Take evening before surgery hydrocodone-acetaminophen 1 tab PO Q6H PRN (if needed) lansoprazole 30 mg PO QPM Other Notes If you have any questions please call us at [phone] or [phone] or [phone] or [phone]
--- NOTE | 2019-01-20 13:34 | XRay Report ---
XR chest Pre-admission PA/Lat CLINICAL HISTORY: pat preoperative evaluation COMPARISON STUDY: 03/12/2016 FINDINGS: The bones soft tissues and hemidiaphragms are normal. The cardiomediastinal silhouette is n ormal. The lungs are clear. The pulmonary vasculature is normal. IMPRESSION: Negative chest. The above report was generated using voice recognition software. It may contain grammatical, syntax or spelling errors. Electronically signed by: Alex Zuniga M.D. 01/20/2019 1:33 PM
[2019-01-20 16:16] LABS: Appearance Urine Cloudy (Clear); Bacteria Urine Automated Negative (Negative); Bilirubin Urine Negative (Negative); Blood Urine Negative (Negative); Color Urine Yellow; Epithelial Cell Urine Auto >30 /lpf (0-5); Glucose Urine UA Negative (Negative); Ketones Urine Negative (Negative); Leukocyte Esterase Urine 1+ (Negative); Nitrite Urine Negative (Negative); Protein Urine Negative (Negative); RBC Urine Automated 0-4 /hpf (0-4); Specific Gravity Urine 1.013 (1.000-1.030); Urobilinogen Urine Negative (Negative); pH Urine 7.5 (4.5-7.5)
[2019-01-20 16:21] LABS: Partial Thromboplastin Ratio 0.9; Partial Thromboplastin Time 25.6 Seconds (21.0-31.0); Prothrombin Time 10.4 Seconds (9.0-12.0)
[2019-02-01] MEDS ORDERED: ACETAMINOPHEN 500 MG TAB PO SCH (06:00)
[2019-02-01] MEDS ORDERED: LR 15ML/HR IV SCH (06:00)
[2019-02-01] MEDS ORDERED: CeleBREX 200 MG CAP PO SCH (06:00)
[2019-02-01] MEDS ORDERED: CEFAZOLIN 2000MG 2,000 MG/15 ML SYR IV SCH (06:00)
[2019-02-01] MEDS ORDERED: GABAPENTIN 300 MG x 2 PO SCH (06:00)
[2019-02-01] MEDS ORDERED: MIDAZOLAM HCL 1 MG/ML 2ML VIAL ONE (06:40)
[2019-02-01] MEDS ORDERED: fentaNYL citrate 100 MCG/2 ML VIAL ONE (06:40)
[2019-02-01] MEDS ORDERED: HYDROmorphone INJ 2 MG/ML SYR/VIAL ONE (06:40)
[2019-02-01] MEDS ORDERED: KETAMINE HCL INJ 50 MG/ML 10 ML VIAL ONE (06:40)
[2019-02-01] MEDS ORDERED: BACITRACIN INJ 50,000 UNIT VIAL ONE (06:49)
[2019-02-01] MEDS ORDERED: LIDOCAINE HCL 2% 2 ML VIAL/AMP(20MG/ML) INFIL ONE (06:50)
[2019-02-01] MEDS ORDERED: GLYCOPYRROLATE 0.2 MG/ML VIAL ONE (06:50)
[2019-02-01] MEDS ORDERED: PROPOFOL IV EMULSION 10 MG/ML 20 ML VIAL IV ONE (06:50)
[2019-02-01] MEDS ORDERED: ROCURONIUM BROMIDE 10 MG/ML 5 ML VIAL ONE (06:50)
[2019-02-01] MEDS ORDERED: DEXAMETHASONE SOD INJ 4 MG/ML VIAL ONE (06:50)
[2019-02-01] MEDS ORDERED: ONDANSETRON INJ 2 MG/ML 2 ML VIAL ONE (06:50)
[2019-02-01] MEDS ORDERED: ACETAMINOPHEN 1000 MG/100 ML IV IV ONE (06:52)
[2019-02-01] MEDS ORDERED: fentaNYL citrate 100 MCG/2 ML VIAL IV PRN (07:16)
[2019-02-01] MEDS ORDERED: ePHEDrine sulfate 50 MG/ML AMP IV PRN (07:16)
[2019-02-01] MEDS ORDERED: ATROPINE SULFATE 0.1 MG/ML 10ML SYR IV PRN (07:16)
[2019-02-01] MEDS ORDERED: ONDANSETRON INJ 2 MG/ML 2 ML VIAL IV PRN ×2 (07:16→10:47)
[2019-02-01] MEDS ORDERED: SCOPOLAMINE 1.5 MG TDSY ONE (07:25)
--- NOTE | 2019-02-01 07:29 | History & Physical Bridge Note ---
Date of Service February 01, 2019 History & Physical Bridge Note I have examined the patient, reviewed the History & Physical and in the interval since the performance of the History & Physical I have noted the following changes of clinical significance: no changes noted
--- NOTE | 2019-02-01 07:30 | History & Physical Report ---
Date of Service February 01, 2019 Assessment & Plan (1) Cervical stenosis of spinal canal: Anterior cervical discectomy and fusion C5-6 C6-7 Present on Admission?: Yes History of Present Illness Chief Complaint: Neck and arm pain Primary Care Provider: Kiara Ryan DO This is a 58-year-old female with neck and arm pain after failing extensive course of nonoperative care she is here for surgical intervention. Allergies Allergy/AdvReac Type Severity Reaction Status Date / Time hydromorphone Allergy Unknown N/V/RASH Verified 02/01/19 07:02 propoxyphene Allergy Unknown N/V/RASH Verified 02/01/19 07:02 Sulfa (Sulfonamide Allergy Unknown UNKNOWN Verified 02/01/19 07:02 Antibiotics) REACTION Home Medications Home Medications Medication Instructions Recorded Confirmed Type hydrocodone-acetaminophen 1 tab PO Q6H PRN 01/13/19 02/01/19 History lansoprazole 30 mg PO QPM 01/13/19 02/01/19 History vitamin E 500 unit PO QAM 01/13/19 02/01/19 History Past Med/Surg History Medical History GERD (gastroesophageal reflux disease) OCCASIONAL History of [place] disease SECONDARY S/P PARTIAL ADRENALECTOMY (2009) Hx of Lyme disease S/P TREATMENT 2016 IBS (irritable bowel syndrome) PTSD (post-traumatic stress disorder) Psychosis PER PCP RECORDS Surgical History History of bowel resection 2/2 "KINK" IN BOWEL History of cholecystectomy History of colonoscopy History of ear surgery EUSTACHIAN TUBE History of nasal septoplasty Hx of abdominal surgery 2/2 ADHESIONS Hx of hernia repair X2 Hx of hysterectomy Hx of meniscectomy of right knee Hx of partial adrenalectomy 2009 History of esophagogastroduodenoscopy (EGD) 07/19/14 (for food bolus): Grade view 1, MAC#3, ETT 7.[address] [facility] History of neck surgery PER PATIENT, REMOVAL OF ADHESIONS Family History Mother Family history of diabetes mellitus Social History Preferred Language: Khmer Communication Ability: Effective Beliefs That Will Affect Care: None Current Living Situation: Spouse Feels Safe at Home: Yes Safety Concerns: Feels Safe At This Time Smoking Status: Never smoker Do You Dip or Chew Tobacco: No Second Hand Exposure: No Hx Alcohol Use: Yes Alcohol type: wine Hx Substance Use: No Physical Exam Vital Signs (Past 24 Hours): Last Vital Signs Temp 36.7 C 02/01/19 06:45 Pulse 81 02/01/19 06:45 Resp 18 02/01/19 06:45 BP 147/86 H 02/01/19 06:45 Pulse Ox 97 02/01/19 06:45 Physical Exam: Patient is alert and oriented does have weakness to detailed testing bilateral upper extremities consistent with her neural encroachment.
[2019-02-01] MEDS ORDERED: FLOSEAL HEMOSTATIC MATRIX 10ML TOP ONE (09:10)
--- NOTE | 2019-02-01 09:22 | Operative Report ---
Post Operative Report Pre & Post Diagnosis Operation Date: 02/01/19 07:45 Pre-Op Diagnosis: Cervical spinal stenosis with radiculopathy Obesity Post-Op Diagnosis: Same Procedure Operation Date: 02/01/19 07:45 Actual Procedures #1 anterior cervical discectomy with bilateral foraminotomies C5-6 and C6-7. #2 anterior cervical arthrodesis C5-6 and C6-7. #3 placement of cortical allograft 6 mm in height filled with DBM at C5-6 and 7 mm at C6-7. #4 placement of globus plate and screws from C5-C7. Surgeon Idris Urrutia, DO Certified Orthoptist Flora Reis Estimated Blood Loss 10 Findings See Below Patient is 5 foot 4 inches tall and 96.7 kg with a BMI of 36.6. The patient's body habitus added at least 25% increase in operative time secondary to difficulty with positioning and exposure to perform the surgical procedure. Specimens None Indications This is a 58-year-old female was been working with [employer] for several years with chronic cervicalgia and radiculopathy. After failing extensive course of nonoperative care would like to undergo the above-mentioned procedure. Description of Procedure Patient was met with preoperatively case discussed all questions addressed. 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 All bony prominences well-padded eyes inspected to ensure no external pressure placed upon. This point the anterior cervical spine was prepped and draped in the normal sterile fashion. With the assistance of fluoroscopy identified the see 6 vertebral body and a transverse incision was placed along the right anterior aspect of the cervical spine overlying this region. Sharp dissection with the assistance of bipolar electrocautery was performed down to and exposing the anterior cervical spine from C5-C7. Self- retaining retractors placed. I verified my position with fluoroscopy. Then performed a complete discectomy at C5-6 out to the uncovertebral joints bilaterally. I did use [place] distracting pins to assist in visualization. I removed all posterior annular fibers longitudinal ligament perform bilateral foraminotomies for complete decompression. Endplates were then burred to subcortical bleeding bone and a 6 mm cortical allograft filled with DBM tapped in position. Then proceeded to see 6 7. Again [place] distracting pins utilized. Removed the entire disc up to the uncovertebral joints bilaterally removed all posterior annular fibers longitudinal ligament bilateral foraminotomies performed. Endplates burred to subcortical bleeding bone and a 7 mm cortical allograft filled with DBM tapped in position. All anterior ossified's were then burred to a smooth cortical surface and a globus plate and screws applied with the assistance of fluoroscopy. The incision was then copiously irrigated explored to ensure no damage to surrounding structures remaining bleeding. 10 round JOHN drain inserted. Incision was then closed with 2 Vicryl in the fashion of 4 Monocryl for final skin closure. Steri-Strip sterile dressings placed. Patient awakened taken to PACU stable condition. Please note Flora Reis present throughout the entire procedure involved in patient positioning complex portions of the surgery and final skin closure. I attest to the content of the Intraoperative Record and any orders documented therein. Any exceptions are noted below.
--- NOTE | 2019-02-01 09:58 | Fluoroscopy Report ---
FL cervical 2-3V CLINICAL HISTORY: ACDF C5-C7 COMPARISON STUDY: Cervical spine MRI June 15, 2014. FLUOROSCOPY TIME: 8.9 seconds. FLUOROSCOPIC IMAGES: 2. FINDINGS: These images demonstrate a C5-7 anterior discectomy and fusion. Hardware is intact. There i s no fracture or unexpected radiopaque foreign body. IMPRESSION: Expected findings following C5-C7 anterior discectomy and fusion. Electronically signed by: Israel Uribe M.D. 02/01/2019 9:57 AM
--- NOTE | 2019-02-01 10:26 | Anesthesiology Progress Note ---
Date of Service February 01, 2019 Anesthesia Post Procedure Vital Signs Vital Signs: Temp Pulse Resp BP Pulse Ox 02/01/19 10:20 60 14 145/77 H 97 02/01/19 10:10 59 L 13 138/78 97 02/01/19 10:00 62 13 140/78 97 02/01/19 09:50 70 16 150/83 H 99 02/01/19 09:40 74 16 146/89 H 98 02/01/19 09:30 83 16 140/84 97 02/01/19 09:28 97.0 F L 84 17 154/93 H 97 02/01/19 06:45 98.1 F 81 18 147/86 H 97 Pain Intensity Medial Neck: Pain Intensity: 4 Transfer of Care Handoff Completed per policy Notes Mental Status: alert / awake / arousable and participated in evaluation Patient Amnestic to Procedure: Yes Nausea / Vomiting: adequately controlled Pain: adequately controlled Airway Patency, RR, SpO2: stable & adequate BP & HR: stable & adequate Hydration State: stable & adequate Anesthetic Complications: no major complications apparent and Pt Satisfied with anesthetic care
[2019-02-01] MEDS ORDERED: NEOSTIGMINE METHYLSULFATE 1 MG/ML 10ML VIAL ONE (10:31)
[2019-02-01] MEDS ORDERED: HYDROCODONE/ACETAMOPHEN 5/325MG TAB PO PRN (10:47)
[2019-02-01] MEDS ORDERED: DEXAMETHASONE SOD PHOSPHATE 8 MG in SYRINGE 0 ML IV PRN (10:47)
[2019-02-01] MEDS ORDERED: NALOXONE HCL 0.4 MG/1 ML VIAL/CARP IV PRN (10:47)
[2019-02-01] MEDS ORDERED: LORazepam 0.5 MG TAB PO PRN (10:47)
[2019-02-01] MEDS ORDERED: LORazepam 0.5 MG/1 ML VIAL IV PRN (10:47)
[2019-02-01] MEDS ORDERED: RACEPINEPHRINE 2.25% NEBU SOLN 0.5 ML VIAL INH PRN (10:47)
[2019-02-01] MEDS ORDERED: DO NOT ADMINISTER PNEUMOCOCCAL VACCINE PRN (10:47)
[2019-02-01] MEDS ORDERED: MoRPHine SULFATE 2 MG/ML CARP IV PRN (10:47)
[2019-02-01] MEDS ORDERED: DO NOT ADMINISTER FLU VACCINE PRN (10:47)
[2019-02-01] MEDS ORDERED: ACETAMINOPHEN 1,000 MG/100 ML VIAL IV PRN (10:47)
[2019-02-01] MEDS ORDERED: MAGNESIUM HYDROXIDE SUSP 30 ML UDC PO PRN (10:47)
[2019-02-01] MEDS ORDERED: DiphenhydrAMINE HCL 50 MG/ML VIAL IV PRN (10:47)
[2019-02-01] MEDS ORDERED: SCOPOLAMINE 1.5 MG TDSY TD SCH (11:00)
[2019-02-01] MEDS: HYDROCODONE/ACETAMOPHEN 5/325MG TAB PO PRN (11:40)
[2019-02-01] MEDS: LACTATED RINGER'S 1,000 ML IV SCH (11:41)
[2019-02-01] MEDS: CEFAZOLIN 2000MG 2,000 MG/15 ML SYR IV SCH (16:08)
[2019-02-01] MEDS: CHECK SCOPOLAMINE PATCH PLACEMENT SCH (16:09)
[2019-02-01] MEDS: DOCUSATE SODIUM 100 MG CAP PO SCH ×2 (20:35→20:37)
[2019-02-01] MEDS: PANTOprazole 40 MG TAB PO SCH ×2 (20:35→20:37)
[2019-02-02] MEDS: HYDROCODONE/ACETAMOPHEN 5/325MG TAB PO PRN (00:05)
[2019-02-02] MEDS: LACTATED RINGER'S 1,000 ML IV SCH (00:06)
[2019-02-02] MEDS: CEFAZOLIN 2000MG 2,000 MG/15 ML SYR IV SCH ×2 (00:06→08:09)
[2019-02-02] MEDS: CHECK SCOPOLAMINE PATCH PLACEMENT SCH ×2 (00:09→08:09)
[2019-02-02] MEDS: DOCUSATE SODIUM 100 MG CAP PO SCH (08:10)
--- NOTE | 2019-02-02 09:34 | Discharge Summary ---
Date of Service February 02, 2019 Admission HPI Per Admitting Provider This is a 58-year-old female with neck and arm pain after failing extensive course of nonoperative care she is here for surgical intervention. Principal Diagnosis Cervical spinal stenosis with radiculopathy Discharge Data Allergies Allergy/AdvReac Type Severity Reaction Status Date / Time hydromorphone Allergy Unknown N/V/RASH Verified 02/01/19 07:02 propoxyphene Allergy Unknown N/V/RASH Verified 02/01/19 07:02 Sulfa (Sulfonamide Allergy Unknown UNKNOWN Verified 02/01/19 07:02 Antibiotics) REACTION Procedures Performed Operation Date: 02/01/19 07:45 Actual Procedures p C5-C6, C6-C7 Anterior Cervical Discectomy and Fusion(Not Applicable) - Idris Urrutia DO Ordered Studies 02/01/19 07:45 FL cervical 2-3V Routine FL fluoroscopy <1hr Routine Hospital Course (1) Cervical stenosis of spinal canal: Patient underwent anterior cervical discectomy and fusion tolerated this well was taken to orthopedic floor postoperative. Postop day 1 arm symptoms were improved. She is swallowing well. No hoarseness. JOHN drain decreasing appropriately. Subsequently discharged home. Discharge orders and instructions from the chart for further review. Total Time Total Time Spent Total Time Spent (In Minutes): 20 minutes Discharge Plan Discharge Items Patient Disposition: Home - Self-Care Reason For Visit: Spinal Stenosis, Cervical Region Discharge Diagnosis: cervical stenosis Discharge Goals: Decrease discomfort Activity: Per 'Additional Instructions' section Non-emergency contact: Primary Care Provider Call non-emergency contact if: you have any medication questions Follow-up/Referrals: Kiara Ryan DO [Primary Care Provider] - Diet: Regular Addtl Provider Instructions: ACTIVITY RECOMMENDATIONS: SELF CARE INSTRUCTIONS AFTER CERVICAL FUSIONS 1. No smoking. Smoking drastically decreases the chance of a solid fusion. 2. No bending, lifting more than 5 pounds, or twisting (roll like a log when turning in bed). 3. You may shower 3 days after surgery. Thoroughly dry wound. Do not soak in the tub. 4. Cervical collar: Must be worn at all times including sleeping. You may remove the brace only to bath, eat and if you are sitting in a recliner. 5. Please walk as much as you can for exercise. Gradually increase the distance that you walk as your endurance increases. SPECIAL CARE INSTRUCTIONS: VERY IMPORTANT TO READ AND REVIEW A. Do not take any anti-inflammatory medications (i.e. Indocin, Advil, Aspirin, Naprosyn, Aleve, Motrin, etc.) as these may inhibit the chance of a solid fusion. Tylenol is okay to take. B. Your surgical incision has been closed with a cosmetic suture under the skin that will dissolve in about 6 weeks. In 14 days, you can use a pair of clean scissors and cut the suture that is left outside of the skin at the ends of your incision. C. Complications are uncommon, but please contact us if you have any signs or symptoms of: 1. wound infection (fever higher than 102.5 degrees F, redness, separation of wound, drainage, or increasing pain from the incision) 2. blood clots in legs (pain, swelling, redness and warmth in legs) 3. urinary tract infection (fever higher than 102.5 degrees, burning upon urination or increased frequency of urination) 4. nerve problems (inability to walk on your toes or heels, numbness, loss of bowel or bladder control) 5. any other symptoms that concern you. D. Please call the office at if you have any concerns or questions about your operation or recovery. MANAGING PAIN AFTER SPINAL SURGERY 1. Narcotic medication is intended for short-term use and will be provided for surgical pain. Surgical pain usually lasts for a period of 4-6 weeks. Narcotic medication includes Percocet, Vicodin, Darvocet, Tylenol #3 or Lortab. 2. Longer-term pain is more appropriately treated with non-narcotic medication such as Tylenol ES. 3. Muscle spasm is not appropriately treated with narcotics. Muscle relaxers such as Soma, Flexeril or Skelaxin can be used along with Tylenol ES. 4. Remember that we all live with some "aches and pains". This is not unusual or uncommon after an injury or as we get older. 5. We will provide appropriate medication within the normal guidelines of their prescribed use. We will also be very cautious and aware of potential abuse and extended duration of patients' medication needs. 6. Please allow 2-3 days to process refills. Prescriptions will not be mailed but must be picked up at the office. FOLLOW UP VISIT: Keep your scheduled follow-up appointment. Any questions, please call the office at . Prescriptions: New hydrocodone-acetaminophen [Kaibeto] 5-325 mg Tablet 1 - 2 tab PO Q4H Qty: 30 RF: 0 Continued hydrocodone-acetaminophen 5-325 mg Tablet 1 tab PO Q6H PRN (Reason: Pain) RF: 0 vitamin E 100 unit Capsule 500 unit PO QAM RF: 0 lansoprazole 30 mg Capsule,Delayed Release(Dr/Ec) 30 mg PO QPM RF: 0 Stand-Alone Forms: [facility] Discharge Orders: Discharge Order (Routine); Ordered 02/02/19 Ordered By: Idris Urrutia Admission Data Admit Date/Time: 02/01/19 09:29 Attending Provider: Idris Urrutia Admit Provider: Idirs Urrutia Primary Care Provider: Kiara Ryan Service: Surgical Services
--- NOTE | 2019-02-02 10:22 | Anesthesiology Progress Note ---
Date of Service February 02, 2019 Anesthesia Post Procedure Vital Signs Vital Signs: Temp Pulse Resp BP Pulse Ox Pulse Ox 02/02/19 09:47 36.6 C 63 18 114/74 94 02/02/19 07:32 36.6 C 63 18 114/74 94 02/02/19 07:22 68 18 94 02/02/19 06:00 94 02/02/19 05:50 36.4 C L 62 18 122/75 96 02/02/19 03:50 36.5 C 65 15 130/78 98 02/02/19 03:45 61 16 93 02/02/19 01:55 36.5 C 63 16 148/86 H 97 02/02/19 00:00 66 18 97 02/01/19 23:50 36.3 C L 57 L 16 130/83 100 02/01/19 20:00 71 16 95 02/01/19 19:49 36.4 C L 81 16 124/78 92 02/01/19 17:42 63 17 118/75 91 02/01/19 16:46 66 18 95 02/01/19 16:00 36.5 C 65 16 141/80 H 95 02/01/19 13:50 61 16 110/73 95 02/01/19 12:48 61 16 135/85 97 02/01/19 11:55 73 20 128/77 100 02/01/19 11:38 61 16 97 02/01/19 11:21 36.5 C 63 17 144/89 H 100 02/01/19 10:50 36.5 C 63 18 135/85 98 98 02/01/19 10:40 61 14 149/80 H 97 02/01/19 10:30 61 14 149/80 H 97 Notes Mental Status: alert / awake / arousable and participated in evaluation Nausea / Vomiting: adequately controlled Pain: adequately controlled Airway Patency, RR, SpO2: stable & adequate BP & HR: stable & adequate Hydration State: stable & adequate
== END 2019-02-02 10:25 | disposition home or self-care (01) | DRG 473 ==
LOC: 3E 05:46 → ASU 05:46 → OBSVTOIN 09:29